=== PATIENT | female | born 1995 | race African-American/Black ===

== ENCOUNTER 2017-01-22 22:35 | Emergency (ER) | payer SELFPAY ==
[~2017-01-22] VITALS: Ht 175.3 cm; Wt 65.6 kg
[2017-01-22 22:46] VITALS: BP 119/79; PULSE 74; RESP 16; TEMP 98.2; O2SAT 100
[2017-01-22] MEDS ORDERED: diphenhydrAMINE HCL 50 MG/ML VIAL IVP ONE (23:30)
[2017-01-22] MEDS ORDERED: EPINEPHrine HCL (1:1000) 1 MG/ML VIAL IM ONE (23:30)
[2017-01-22] MEDS ORDERED: methylPREDNISolone SOD SUCC 125 MG/2 ML VIAL IVP ONE (23:30)
[2017-01-22] MEDS ORDERED: SODIUM CHLORIDE 0.9% FLUSH 10 ML FLUSH IV FLUSH PRN (23:30)
[2017-01-22] MEDS ORDERED: FAMOTIDINE 20 MG/2 ML VIAL IV PUSH ONE (23:30)
[2017-01-22 23:35] VITALS: RESP 18; O2SAT 100
[2017-01-22] MEDS ORDERED: PRED20 PO (23:36)
[2017-01-22] MEDS ORDERED: CETI-1 PO (23:36)
[2017-01-22] MEDS ORDERED: ZANT300T PO (23:36)
--- NOTE | 2017-01-22 23:36 | PD ---
HPI Chief Complaint: Allergic/Adverse Reaction Time Seen by Provider: 23:27 Travel History International Travel<30 days: No Contact w/Intl Traveler<30days: No Traveled to known affect area: No History of Present Illness HPI 21-year-old female complains of itching and swelling of the lips. Patient states the symptoms started about 4 have hours prior coming to the emergency room. Patient has history recurrent swelling in the past from allergic reaction. Patient has been seen by her inspector watch parts in the past. Patient denies any problem with swallowing or shortness of breath. Patient denies any chance of being . PFSH Past Medical History Medical History: Denies Significant Hx Diminished Hearing: No Tetanus Vaccination: Unknown Influenza Vaccination: No ?: Not LMP: last week 01/13 Past Surgical History Tonsillectomy: Yes Social History Alcohol Use: No Tobacco Use: Yes Substance Use: No Allergies-Medications (Allergen,Severity, Reaction): Coded Allergies: No Known Allergies (Unverified , 01/22/17) Reported Meds & Prescriptions Reported Meds & Active Scripts Active No Active Prescriptions or Reported Medications Review of Systems General / Constitutional: No: Fever Eyes: No: Visual changes HENT: No: Headaches Cardiovascular: No: Chest Pain or Discomfort Respiratory: No: Shortness of Breath Gastrointestinal: No: Abdominal Pain Genitourinary: No: Dysuria Musculoskeletal: No: Pain Skin: No Rash Neurologic: No: Weakness Psychiatric: No: Depression Endocrine: No: Polydipsia Hematologic/Lymphatic: No: Easy Bruising Physical Exam Narrative GENERAL: Well-nourished, well-developed patient. SKIN: Focused skin assessment warm/dry. HEAD: Normocephalic. EYES: No scleral icterus. No injection or drainage. NECK: Supple, trachea midline. No JVD or lymphadenopathy. CARDIOVASCULAR: Regular rate and rhythm without murmurs, gallops, or rubs. RESPIRATORY: Breath sounds equal bilaterally. No accessory muscle use. GASTROINTESTINAL: Abdomen soft, non-tender, nondistended. MUSCULOSKELETAL: No cyanosis, or edema. BACK: Nontender without obvious deformity. No CVA tenderness. Patient has edema of the lips. No edema to the throat. No stridor or wheezes. No evidence of hives on the trunk or extremity. Data Data Last Documented VS Vital Signs Date Time Temp Pulse Resp B/P Pulse Ox O2 Delivery O2 Flow Rate FiO2 01/22/17 23:00 74 18 100 Room Air 01/22/17 22:46 98.2 119/79 [facility] Medical Decision Making Medical Screen Exam Complete: Yes Emergency Medical Condition: Yes Differential Diagnosis Differential diagnosis including allergic reaction, anaphylactoid reaction. Narrative Course 21-year-old female with itching swelling of the lips this evening. History of recurrent allergic reactions. Epinephrine 0.3 mL IM. Solu-Medrol 125 mg IV. Benadryl 50 mg IV. Pepcid 20 mg IV. Diagnosis Primary Impression: Allergic reaction Qualified Code: T78.40XA - Allergic reaction, initial encounter Patient Instructions: General Instructions Additional Instructions: Take medications as directed. Follow-up with personal physician and inspector watch parts. Return if shortness of breath, problem with swallowing. Med/Other Pt SpecificInfo: Prescription(s) given Scripts Ranitidine (Zantac)300 Mg Yax730 Mg PO DAILY #14 TAB Ref 0 Prov:Yung Barajas MD 01/22/17 Cetirizine HCl (Zyrtec)10 Mg Tablet1 Tab PO DAILY #14 Prov:Yung Barajas MD 01/22/17 Prednisone 20 Mg Tab20 Mg PO BID #10 TAB Prov:Yung Barajas MD 01/22/17 Disposition: 01 DISCHARGE HOME Condition: Stable Yung Barajas MD January 22, 2017 23:36
[2017-01-23 00:51] VITALS: BP 121/79; PULSE 82; RESP 18; O2SAT 100
== END 2017-01-23 01:04 | disposition home or self-care (01) ==
LOC: PHED 22:35
DX: T78.40XA Allergy, unspecified, initial encounter (principal); L29.9 Pruritus, unspecified; R22.0 Localized swelling, mass and lump, head; Z72.0 Tobacco use
CPT/HCPCS: 96372; 96374; 96375; 99284; J0171; J1200; J2930